=== PATIENT | female | born 1985 | race Hispanic/Latino ===

== ENCOUNTER 2018-07-04 12:01 | Emergency (ER) | payer OTHER ==
[~2018-07-04] VITALS: Ht 165.1 cm; Wt 91.4 kg
[2018-07-04] MEDS ORDERED: ADV250INH INH (12:10)
[2018-07-04 12:31] LABS: BILIRUBIN, URINE MANUAL NEGATIVE (NEGATIVE); GLUCOSE, URINE (UA) MANUAL NEGATIVE (NEGATIVE); KETONE, URINE MANUAL NEGATIVE (NEGATIVE); UROBILINOGEN, URINE MANUAL NORMAL (NORMAL)
[2018-07-04 13:01] LABS: BASO % 0.4 % (0.0-1.0); EOS # 0.1 10^3/uL (0.0-0.50); EOS % 0.7 % (0.0-3.0); HEMATOCRIT 41.1 % (36.0-47.0); HEMOGLOBIN 14.2 g/dl (12.0-15.5); LYMPH # 1.9 10^3/uL (1.5-4.5); LYMPH % 26.5 % (24.0-44.0); MEAN CORPUSCULAR HEMOGLOBIN 31.2 pg (27.0-33.0); MEAN CORPUSCULAR HGB CONC 34.5 g/dl (32.0-36.5); MEAN CORPUSCULAR VOLUME 90.3 fl (80.0-96.0); MONO # 0.6 10^3/uL (0.0-0.8); MONO % 8.2 % (0.0-5.0); NEUTROPHILS # 4.4 10^3/uL (1.8-7.7); NEUTROPHILS % 63.6 % (36.0-66.0); PLATELET COUNT, AUTOMATED 422 10^3/uL (150-450); RED BLOOD COUNT 4.55 10^6/uL (4.00-5.40)
[2018-07-04 13:33] LABS: ALT/SGPT 38 U/L (12-78); AMYLASE 54 U/L (25-115); BILIRUBIN,DIRECT 0.2 MG/DL (0.0-0.2); BILIRUBIN,TOTAL 0.6 MG/DL (0.2-1.0); BLOOD UREA NITROGEN 8 MG/DL (7-18); CALCIUM LEVEL 8.9 MG/DL (8.5-10.1); CARBON DIOXIDE LEVEL 24 MEQ/L (21-32); CHLORIDE LEVEL 107 MEQ/L (98-107); GLOMERULAR FILTRATION RATE > 60.0 (>60); GLUCOSE, FASTING 83 MG/DL (70-100); LIPASE 129 U/L (73-393); POTASSIUM SERUM 3.9 MEQ/L (3.5-5.1); SODIUM LEVEL 140 MEQ/L (136-145); TOTAL PROTEIN 7.8 GM/DL (6.4-8.2)
[2018-07-04 13:40] LABS: HCG, SERUM QUALITATIVE POSITIVE (NEGATIVE)
[2018-07-04 15:21] LABS: HCG, SERUM QUANTITATIVE 135 MIU/ML
[2018-07-04] MEDS ORDERED: PROMETHAZINE 25 MG TAB PO ONE (15:45)
[2018-07-04] MEDS ORDERED: ACETAMINOPHEN TAB 650MG DOSE (2X325MG) PO ONE (16:45)
--- NOTE | 2018-07-04 16:53 | REP ---
FIRST TRIMESTER ULTRASOUND: Real-time sonographic evaluation of the gravid uterus is performed. Transabdominal and endovaginal technique is utilized. The uterus measures 8.8 x 5.2 x 6.1 cm. Endometrial thickness is 17 mm. No gestational sac is seen in the endometrial canal. Right ovary measures 4.2 x 2.4 x 3.8 cm and contains a complex cystic structure 2.3 cm in diameter which may represent a hemorrhagic corpus luteum. Left ovary measures 3.0 x 1.8 x 2.3 cm. There is no other evidence of adnexal mass. There is mild free fluid. There is no ovarian torsion. The findings may represent a very early intrauterine , missed AB or ectopic . Suggest correlation with serial quantitaive beta-HCG values. Electronically Signed by Nic Mead MD 07/04/2018 07:45 P
[2018-07-04] MEDS ORDERED: PYRI25TA4 PO (17:05)
[2018-07-04] MEDS ORDERED: UNIS25TA3 PO (17:05)
[2018-07-04 17:24] VITALS: BP 122/76
== END 2018-07-04 17:26 | disposition home or self-care (01) ==
LOC: M ED 12:01
DX: O26.891 Other specified pregnancy related conditions, first trimester (principal); R10.2 Pelvic and perineal pain; N83.11 Corpus luteum cyst of right ovary; O99.511 Diseases of the respiratory system complicating pregnancy, first trimester; J45.909 Unspecified asthma, uncomplicated; M51.9 Unspecified thoracic, thoracolumbar and lumbosacral intervertebral disc disorder; Z88.8 Allergy status to other drugs, medicaments and biological substances; Z3A.00 Weeks of gestation of pregnancy not specified

== ENCOUNTER 2018-07-10 15:12 | Emergency (ER) | payer OTHER ==
[~2018-07-10] VITALS: Ht 165.1 cm; Wt 101.7 kg
[~2018-07-10 15:12] MED LIST: ADV250INH INH; PYRI25TA4 PO; UNIS25TA3 PO
[2018-07-10 15:46] LABS: BASO # 0.1 10^3/uL (0.0-0.2); BASO % 0.6 % (0.0-1.0); EOS % 0.5 % (0.0-3.0); HEMATOCRIT 37.3 % (36.0-47.0); HEMOGLOBIN 12.7 g/dl (12.0-15.5); LYMPH # 2.1 10^3/uL (1.5-4.5); LYMPH % 25.9 % (24.0-44.0); MONO # 0.7 10^3/uL (0.0-0.8); MONO % 8.9 % (0.0-5.0); NEUTROPHILS # 5.2 10^3/uL (1.8-7.7); NEUTROPHILS % 63.6 % (36.0-66.0); PLATELET COUNT, AUTOMATED 411 10^3/uL (150-450); WHITE BLOOD COUNT 8.2 10^3/uL (4.0-10.0)
[2018-07-10] MEDS ORDERED: ALBUTEROL SULFATE 2.5 MG/0.5 ML INH NEB SOLN NEB ONE (16:15)
--- NOTE | 2018-07-10 17:40 | REP ---
Clinical: with vaginal bleeding. Dating and viability. Technique: Transabdominal and transvaginal first trimester obstetrical ultrasound with color Doppler evaluation. Findings: Heterogeneous anteverted uterus measures 9.4 x 5.5 x 6.6 cm. A gestational sac is identified without pole. Mean sac diameter of 4.9 mm corresponds to 5 weeks 2 days gestational age. Maternal ovaries are identified and appear normal with 2.1 cm complex right ovarian cyst likely representing corpus luteum. Right ovary measures 4.2 x 2.6 x 1.9 cm; RI 0.58. Left ovary measures 3.3 x 1.6 x 1.9 cm. Small amount of free fluid in the pelvis noted. Impression: Findings likely representing early intrauterine . Differential diagnosis would include blighted ovum/spontaneous . Correlation with serial HCG levels and repeat ultrasound may be warranted. Electronically Signed by Jose Nunez MD 07/10/2018 05:32 P
[2018-07-10] MEDS ORDERED: ACETAMINOPHEN TAB 650MG DOSE (2X325MG) PO ONE (17:45)
[2018-07-10] MEDS ORDERED: RHOGAM 300 MCG (1500 IU) INJ (J2790) IM ONE (18:15)
[2018-07-10 19:03] VITALS: BP 126/67
--- NOTE | 2018-07-11 10:19 | ECGEPIP ---
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
== END 2018-07-10 19:07 | disposition home or self-care (01) ==
LOC: M ED 15:12
DX: O20.9 Hemorrhage in early pregnancy, unspecified (principal); O99.411 Diseases of the circulatory system complicating pregnancy, first trimester; R07.9 Chest pain, unspecified; R06.02 Shortness of breath; O99.511 Diseases of the respiratory system complicating pregnancy, first trimester; J45.909 Unspecified asthma, uncomplicated; O26.891 Other specified pregnancy related conditions, first trimester; M54.9 Dorsalgia, unspecified; Z87.42 Personal history of other diseases of the female genital tract; Z3A.01 Less than 8 weeks gestation of pregnancy; Z88.8 Allergy status to other drugs, medicaments and biological substances
CPT/HCPCS: 76801; 76817; 81001; 84702; 85025; 86850; 86900; 86901; 93005; 93976; 94640; 96372; 99284; J2790

== ENCOUNTER → 2018-07-12 | Outpatient (CLI) | payer OTHER | LOC: M LRY 15:54 | PROVIDERS: ATTEND Physician Assistant | DX: O46.92 Antepartum hemorrhage, unspecified, second trimester (principal); Z3A.22 22 weeks gestation of pregnancy ==

== ENCOUNTER → 2018-07-17 | Outpatient (CLI) | payer OTHER ==
[~2018-07-17] MED LIST changes: +KEFL500C17 PO
--- NOTE | 2018-07-17 15:31 | REP ---
Emergency first trimester obstetric sonography: History: Pelvic pain and occasional vaginal bleeding. Findings: Transabdominal and transvaginal scanning are performed. There is a gestational sac in the uterus containing a yolk sac consistent with early intrauterine . No identifiable embryonic pole is seen. Mean sac size diameter is 14.1 mm. This would correspond with a 5-qjgn-3-day gestational age estimate. There is a 2.2 x 0.4 x 1.0 cm fluid collection to the left of the gestational sac which may be a subchorionic hemorrhage. There is no free fluid the cul-de-sac. There is a 1.9 cm cyst in the right ovary consistent with involuting corpus luteum. Right ovary dimensions are 4.0 x 2.6 x 3.6 cm. Left ovary measures 3.8 x 1.9 x 2.6 cm. Resistive indices by Doppler are normal in the ovaries bilaterally measured at 0.46 on the right and 0.70 on the left. Impression: Gestational sac in the uterus contains a yolk sac but no identifiable embryonic pole. This is nonspecific. Early IUP versus blighted ovum versus missed AB are possibilities. No significant extrauterine abnormality. 6 weeks 2 days by mean sac size parameter. Electronically Signed by Gavin Valladares MD 07/17/2018 07:19 P
== END ==
LOC: M RAD 13:21
PROVIDERS: ATTEND Obstetrics & Gynecology
DX: Z34.82 Encounter for supervision of other normal pregnancy, second trimester (principal)

== ENCOUNTER 2018-07-22 22:30 | Emergency (ER) | payer OTHER ==
[~2018-07-22] VITALS: Ht 165.1 cm; Wt 100.0 kg
[~2018-07-22 22:30] MED LIST changes: -KEFL500C17 PO
[2018-07-22 22:31] VITALS: BP 151/80
[2018-07-22] MEDS ORDERED: NS 1,000 ML IV ONE (23:00)
[2018-07-22] MEDS ORDERED: ACETAMINOPHEN 325 MG TAB PO ONE (23:00)
[2018-07-22 23:07] LABS: BASO % 0.4 % (0.0-1.0); EOS % 0.1 % (0.0-3.0); HEMATOCRIT 37.2 % (36.0-47.0); HEMOGLOBIN 13.1 g/dl (12.0-15.5); LYMPH # 0.8 10^3/uL (1.5-4.5); LYMPH % 8.7 % (24.0-44.0); MEAN CORPUSCULAR HEMOGLOBIN 31.5 pg (27.0-33.0); MEAN CORPUSCULAR HGB CONC 35.2 g/dl (32.0-36.5); MEAN CORPUSCULAR VOLUME 89.4 fl (80.0-96.0); MONO # 0.5 10^3/uL (0.0-0.8); MONO % 5.7 % (0.0-5.0); NEUTROPHILS # 7.8 10^3/uL (1.8-7.7); NEUTROPHILS % 84.8 % (36.0-66.0); PLATELET COUNT, AUTOMATED 334 10^3/uL (150-450); RED BLOOD COUNT 4.16 10^6/uL (4.00-5.40); WHITE BLOOD COUNT 9.3 10^3/uL (4.0-10.0)
[2018-07-22] MEDS ORDERED: ONDANSETRON 4MG/2ML VIAL (J2405) IV ONE (23:15)
[2018-07-22] MEDS ORDERED: MORPHINE 4 MG/ML 1ML VIAL/SYRINGE (J2270) IV ONE (23:15)
[2018-07-23 00:08] LABS: BLOOD UREA NITROGEN 5 MG/DL (7-18); CALCIUM LEVEL 8.8 MG/DL (8.5-10.1); CARBON DIOXIDE LEVEL 24 MEQ/L (21-32); CHLORIDE LEVEL 102 MEQ/L (98-107); CREATININE FOR GFR 0.73 MG/DL (0.55-1.30); GLOMERULAR FILTRATION RATE > 60.0 (>60); GLUCOSE, FASTING 99 MG/DL (70-100); HCG, SERUM QUANTITATIVE 6619 MIU/ML; POTASSIUM SERUM 3.5 MEQ/L (3.5-5.1); SODIUM LEVEL 135 MEQ/L (136-145)
--- NOTE | 2018-07-23 00:36 | REPVR ---
EXAM: US First Trimester, Transabdominal and US , Transvaginal EXAM DATE/TIME: 07/22/2018 11:34 PM CLINICAL HISTORY: 32 years old, female; Pain and signs and symptoms; Lmp or gestational age (in weeks): 05/26/18; Antepartum complications; Bleeding; complicated by abdominal or pelvic pain; Lower; First trimester; ; Additional info: Vaginal bleeding TECHNIQUE: Real-time transabdominal obstetrical ultrasound of the maternal pelvis and a first trimester , less than 14 weeks 0 days, with image documentation. Transvaginal imaging was used for better evaluation of the fetus and adnexa. COMPARISON: 1ST TRIMESTER US 07/17/2018 2:11:19 PM FINDINGS: GESTATION: Gestation: No intrauterine gestational sac is visualized. An intrauterine gestational sac with visualized on the prior ultrasound. This is concerning for a failed . MATERNAL: Uterus: Uterus measures 10.5 x 5.9 x 7.5 cm. The endometrial stripe is thickened measuring 3.6 cm. There is heterogeneous echogenicity of the endometrium and endometrial canal. Retained product of conception are considered. Mild increased vascularity is identified associated with the endometrium/endometrial contents. Cervix: Hypoechoic nabothian cysts are identified at the level of the cervix. Right adnexa: Within the right ovary, there is a thick-walled complex cyst or corpus luteum cyst. Upon remeasuring, this measures approximately 1.3 x 1.2 x 1.6 cm. The right ovary measures 4.8 x 2.0 x 2.8 cm. There is preservation of blood flow within the ovary. Left adnexa: The left ovary measures 3.0 x 1.8 x 2.6 cm. Small follicles are visualized within the left ovary. There is preservation of blood flow within the ovary. Intraperitoneal: Trace free fluid is seen within the cul-de-sac. IMPRESSION: 1. No intrauterine gestational sac is visualized. An intrauterine gestational sac with visualized on the prior ultrasound. This is concerning for a failed . 2. The endometrial stripe is thickened. There is heterogeneous echogenicity of the endometrium and endometrial canal. Retained product of conception are considered. 3. Trace free fluid is seen within the cul-de-sac. 4. Within the right ovary, there is a thick-walled complex cyst or corpus luteum cyst. 5. Hypoechoic nabothian cysts are identified at the level of the cervix. 6. Follow-up ultrasonography is recommended. Electronically signed by: Guy Brand On 07/23/2018 00:35:53 AM
[2018-07-23] MEDS ORDERED: KEFL500C17 PO (00:53)
[2018-07-23] MEDS ORDERED: CEPHALEXIN 500 MG CAP PO ONE (01:00)
[2018-07-23 02:23] LABS: CHLAMYDIA DNA AMPLIFICATION NEGATIVE (NEGATIVE); GC DNA AMPLIFICATION NEGATIVE (NEGATIVE)
--- NOTE | 2018-07-23 11:59 | ED PDOC ---
Post-Departure Follow-Up ft neal ob and fp faxed formal report of ob us for fu Santiago Rodriguez MD Jul 23, 2018 11:59
== END 2018-07-23 01:01 | disposition home or self-care (01) ==
LOC: M ED 22:30
DX: O03.38 Urinary tract infection following incomplete spontaneous abortion (principal); J45.909 Unspecified asthma, uncomplicated; M54.9 Dorsalgia, unspecified; Z88.8 Allergy status to other drugs, medicaments and biological substances
CPT/HCPCS: 76801; 76817; 80048; 81001; 83605; 84702; 85025; 86850; 86870; 86900; 86901; 87040; 87086; 87210; 87491; 87591; 93976; 96374; 96375; 99284; J2270; J2405

== ENCOUNTER → 2018-11-29 | Outpatient (CLI) | payer OTHER ==
[~2018-11-29] MED LIST changes: +KEFL500C17 PO
--- NOTE | 2018-11-29 10:12 | REP ---
MRI LUMBAR SPINE WITHOUT CONTRAST: HISTORY: Low back pain. No comparison imaging available. TECHNIQUE: Sagittal and axial T1- and T2-weighted scans are acquired in the usual fashion with and without fat saturation. Sequences include spin echo, turbo spin echo, and STIR imaging sequences. MRI FINDINGS: Lumbar vertebral body heights are preserved. Alignment is normal. There is no evidence of spondylolysis or spondylolisthesis. There are degenerative disc changes at L5-S1 and L4-5 with degenerative narrowing and desiccation. There are reactive marrow changes on either side of the L5-S1 disc and at the inferior endplate of L4 anteriorly. Other disc spaces are maintained. The tip of the conus medullaris is normal in position and appearance at T12. No extra vertebral abnormality is observed. Axial and sagittal images taken at the L5-S1 disc level demonstrate mild facet hypertrophy. There is central disc bulging effacing the ventral epidural fat but not compressing the thecal sac. No nerve root compression is seen. No central canal stenosis is noted. At L4-5, there is also mild diffuse disc bulging. This subtly indents the ventral margin of the thecal sac. There is mild central canal stenosis due to disc bulging and developmentally short pedicles. There is mild facet and ligamentum flavum hypertrophy also noted at L4-5. Mid sagittal AP dimension of the thecal sac at the L4-5 disc level is 9 mm. No neural foraminal narrowing is seen. The posterior margin of the L3-4, L2-3, and L1-2 disc spaces are normal. No other finding. IMPRESSION: Diffuse disc bulging and degenerative disc changes L4-5 and L5-S1. Mild central canal stenosis at L4-5 due to disc bulging, developmentally short pedicles, and facet and ligamentum flavum hypertrophy. Electronically Signed by Gavin Valladares MD 11/29/2018 10:28 A
== END ==
LOC: M RAD 09:00
PROVIDERS: ATTEND Family Medicine
DX: M51.26 Other intervertebral disc displacement, lumbar region (principal); M51.36 Other intervertebral disc degeneration, lumbar region; M51.27 Other intervertebral disc displacement, lumbosacral region; M51.37 Other intervertebral disc degeneration, lumbosacral region